=== PATIENT | female | born 1965 | race Caucasian/White ===

== ENCOUNTER → 2016-11-08 | Outpatient (CLI) | payer BC ==
[~2016-11-08] MED LIST: ADVAIR 250-501 EACH IH; CLINDAMYCIN HC300 MG PO; CYMBALTA60 MG PO; DIFLUCAN150 MG PO; MARTINIC1 EACH PO; NORCO 5/3251 TABLET PO; PREVACID30 MG PO; ULTRAM50 MG PO; VITAMIN B122500 MCG PO; VITAMIN D50000 UNI1 PO; XANAX0.5 MG PO
== END | disposition home or self-care (01) ==
LOC: CDC 15:39
DX: Z01.810 Encounter for preprocedural cardiovascular examination (principal); R06.02 Shortness of breath
CPT/HCPCS: 93000

== ENCOUNTER 2017-04-07 09:15 | Emergency (ER) | payer BC ==
[~2017-04-07] VITALS: Ht 162.6 cm; Wt 95.4 kg
[2017-04-07] MEDS ORDERED: POTASSIUM CHLOR8 ME2 PO (09:44)
[2017-04-07] MEDS ORDERED: MAGNESIUM100 MG PO (09:45)
[2017-04-07] MEDS ORDERED: LASIX40 MG PO (09:45)
[2017-04-07] MEDS ORDERED: FLEXERIL10 MG PO (11:46)
[2017-04-07] MEDS ORDERED: NORCO 5/3251 TABLET PO (11:46)
[2017-04-07 12:21] VITALS: BP 151/80
== END 2017-04-07 12:21 | disposition home or self-care (01) ==
LOC: EME 09:15
DX: S00.33XA Contusion of nose, initial encounter (principal); S60.212A Contusion of left wrist, initial encounter; S60.031A Contusion of right middle finger without damage to nail, initial encounter; S80.02XA Contusion of left knee, initial encounter; S80.01XA Contusion of right knee, initial encounter; W01.198A Fall on same level from slipping, tripping and stumbling with subsequent striking against other object, initial encounter; Y99.0 Civilian activity done for income or pay; J45.909 Unspecified asthma, uncomplicated; K21.9 Gastro-esophageal reflux disease without esophagitis; M79.7 Fibromyalgia; F32.9 Major depressive disorder, single episode, unspecified; F41.9 Anxiety disorder, unspecified; L40.50 Arthropathic psoriasis, unspecified; Z98.84 Bariatric surgery status; Z87.891 Personal history of nicotine dependence
CPT/HCPCS: 70150; 73110; 73130; 73564; 99281; 99284; J3010

== ENCOUNTER → 2017-09-02 | Outpatient (CLI) | payer BC ==
[~2017-09-02] MED LIST changes: +FLEXERIL10 MG PO; +LASIX40 MG PO; +MAGNESIUM100 MG PO; +POTASSIUM CHLOR8 ME2 PO; +REQUIP1 MG PO; +SYNTHROID50 MCG PO; +ZANAFLEX4 MG PO
== END | disposition home or self-care (01) ==
DX: M17.12 Unilateral primary osteoarthritis, left knee (principal); R26.2 Difficulty in walking, not elsewhere classified; M25.562 Pain in left knee; M25.662 Stiffness of left knee, not elsewhere classified; M62.81 Muscle weakness (generalized); Z74.1 Need for assistance with personal care
CPT/HCPCS: 97150 GO; 97161 GP; 97165 GO; 97530 GP

== ENCOUNTER 2017-09-07 21:07 | Inpatient (IN) | payer BC ==
[~2017-09-07] VITALS: Ht 162.6 cm; Wt 98.2 kg
[2017-09-08 09:12] VITALS: BP 163/70
[2017-09-08] MEDS ORDERED: XTAMPZA ER18 MG PO (09:21)
[2017-09-08] MEDS ORDERED: OXYCODONE HCL10 MG PO (09:22)
[2017-09-08 13:48] LABS: HEMATOCRIT 34.7 % (36.0-46.0); HEMOGLOBIN 10.7 G/DL (11.9-15.5); MCH 25.3 PG (29.0-34.0); MCHC 30.8 G/DL (30.0-36.0); PLATELET COUNT 242 K/uL (156-360); RBC DIS.WIDTH-CV 14.9 % (11.8-14.6); RBC DIS.WIDTH-SD 43.5 % (39-53); RED BLOOD COUNT 4.23 M/uL (3.80-5.20); WHITE BLOOD COUNT 6.3 K/uL (4.1-10.2)
[2017-09-08 18:12] VITALS: BP 154/76
[2017-09-08 19:51] VITALS: BP 148/70
[2017-09-09] VITALS (7 sets, daily range): BP systolic 132–157; BP diastolic 65–83
[2017-09-09 04:53] LABS: HEMATOCRIT 33.4 % (36.0-46.0); HEMOGLOBIN 10.4 G/DL (11.9-15.5); MCV 80.7 FL (83-99)
[2017-09-09 05:00] LABS: CHLORIDE 104 mEq/L (99-109); POTASSIUM 4.6 mEq/L (3.7-5.4); SODIUM 137 mEq/L (136-147)
[2017-09-09 05:02] LABS: GLUCOSE 127 mg/dL (70-99)
[2017-09-09 05:06] LABS: CREATININE 0.8 mg/dL (0.6-1.3); GFR ESTIMATE (CALCULATED) > 59 mL/min/; UREA NITROGEN (BUN) 10 mg/dL (9-23)
[2017-09-10 00:05] VITALS: BP 133/80
[2017-09-10 04:11] VITALS: BP 126/72
[2017-09-10 06:11] LABS: HEMATOCRIT 35.5 % (36.0-46.0); HEMOGLOBIN 10.8 G/DL (11.9-15.5); MCV 80.5 FL (83-99)
[2017-09-10 08:20] VITALS: BP 126/74
[2017-09-10] MEDS ORDERED: LOVENOX40 MG/0.4 SC (08:33)
[2017-09-10] MEDS ORDERED: OXYCONTIN20 MG PO (08:34)
[2017-09-10 12:12] VITALS: BP 98/64
== END 2017-09-10 15:10 | DRG 470 ==
LOC: ENRESERV 21:07 → 2SOUTH 09-08 08:42 → 3WEST 09-08 18:05
PROVIDERS: Orthopaedic Surgery
PROC: 0SRD0J9 Replacement of Left Knee Joint with Synthetic Substitute, Cemented, Open Approach (ICD-10-PCS; principal; 2017-09-08)
DX: M17.12 Unilateral primary osteoarthritis, left knee (principal); F41.0 Panic disorder [episodic paroxysmal anxiety]; G89.29 Other chronic pain; Z96.611 Presence of right artificial shoulder joint; Z98.84 Bariatric surgery status; Z90.710 Acquired absence of both cervix and uterus
CPT/HCPCS: 73560; 80048; 85014; 85018; 85027; C1713; J0330; J0360; J0690; J1100; J1170; J1650; J2250; J2405; J2710; J3010; J7030; J7050; Q0175

== ENCOUNTER 2017-09-27 19:42 | Emergency (ER) | payer BC ==
[~2017-09-27] VITALS: Ht 160 cm; Wt 99.0 kg
[~2017-09-27 19:42] MED LIST changes: +LOVENOX40 MG/0.4 SC; +OXYCODONE HCL10 MG PO; +OXYCONTIN20 MG PO; +XTAMPZA ER18 MG PO
[2017-09-27 20:32] LABS: HEMOGLOBIN 10.3 G/DL (11.9-15.5); MCH 25.8 PG (29.0-34.0); MCHC 31.2 G/DL (30.0-36.0); MCV 82.7 FL (83-99); RBC DIS.WIDTH-CV 14.7 % (11.8-14.6); RBC DIS.WIDTH-SD 44.7 % (39-53); RED BLOOD COUNT 3.99 M/uL (3.80-5.20)
[2017-09-27 20:36] LABS: PLATELET COUNT 331 K/uL (156-360)
[2017-09-27 20:48] LABS: CHLORIDE 100 mEq/L (99-109); POTASSIUM 4.3 mEq/L (3.7-5.4); SODIUM 141 mEq/L (136-147)
[2017-09-27 20:50] LABS: GLUCOSE 101 mg/dL (70-99)
[2017-09-27 20:54] LABS: GFR ESTIMATE (CALCULATED) > 59 mL/min/
[2017-09-27 20:55] LABS: UREA NITROGEN (BUN) 16 mg/dL (9-23)
[2017-09-27] MEDS ORDERED: DIFLUCAN150 MG PO (22:02)
[2017-09-27] MEDS ORDERED: KEFLEX500 MG PO (22:02)
[2017-09-27 22:21] VITALS: BP 108/78
== END 2017-09-27 22:48 | disposition home or self-care (01) ==
LOC: EME 19:42
PROVIDERS: Physician Assistant
DX: L03.116 Cellulitis of left lower limb (principal); Z96.652 Presence of left artificial knee joint; M79.7 Fibromyalgia; M19.90 Unspecified osteoarthritis, unspecified site; K21.9 Gastro-esophageal reflux disease without esophagitis; F32.9 Major depressive disorder, single episode, unspecified; J45.909 Unspecified asthma, uncomplicated; F41.9 Anxiety disorder, unspecified; Z87.891 Personal history of nicotine dependence; Z98.84 Bariatric surgery status; Z79.891 Long term (current) use of opiate analgesic
CPT/HCPCS: 80048; 85027; 93971; 99281; 99284

== ENCOUNTER 2017-10-21 12:46 | Day surgery (SDC) | payer BC ==
[~2017-10-21] VITALS: Ht 162.6 cm; Wt 95.4 kg
[~2017-10-21 12:46] MED LIST changes: +ERGOCALCIF50000 UNIT PO; +KEFLEX500 MG PO; +MICRO-K10 ME2 PO; -POTASSIUM CHLOR8 ME2 PO; +SYMBICORT60 INHALAT IH; -VITAMIN D50000 UNI1 PO; +XTAMPZA ER27 MG PO
[2017-10-21 13:25] VITALS: BP 197/88
[2017-10-21 19:05] VITALS: BP 150/81
[2017-10-21 20:05] VITALS: BP 141/85
== END 2017-10-21 20:10 | disposition home or self-care (01) ==
LOC: SDC 12:46
PROC: 0SWDXJZ Revision of Synthetic Substitute in Left Knee Joint, External Approach (ICD-10-PCS; principal; 2017-10-21)
DX: M24.662 Ankylosis, left knee (principal); Z96.652 Presence of left artificial knee joint; F41.8 Other specified anxiety disorders; Z87.891 Personal history of nicotine dependence; J45.909 Unspecified asthma, uncomplicated; E03.9 Hypothyroidism, unspecified; Z86.718 Personal history of other venous thrombosis and embolism; Z79.899 Other long term (current) drug therapy
CPT/HCPCS: 73560; 76000; J1100; J1170; J2250; J2405; J3010; J7030

== ENCOUNTER 2018-04-02 20:02 | Inpatient (IN) | payer BC ==
[~2018-04-02] VITALS: Ht 162.6 cm; Wt 104.4 kg
[2018-04-02 22:13] LABS: BASOPHIL (%) 0.2 % (0-1); EOSINOPHIL (%) 0.2 % (0-5); HEMATOCRIT 32.7 % (36.0-46.0); HEMOGLOBIN 9.9 G/DL (11.9-15.5); IMMATURE GRANULOCYTE (%) 0.5 % (0.0-0.7); LYMPHOCYTE (%) 22.2 % (15-42); LYMPHOCYTE COUNT 2.4 K/uL (1.0-2.8); MCH 23.9 PG (29.0-34.0); MCHC 30.3 G/DL (30.0-36.0); MCV 78.8 FL (83-99); MONOCYTE (%) 10.4 % (3-12); MONOCYTE COUNT 1.1 K/uL (0-0.8); NEUTROPHIL (%) 66.5 % (45-76); NEUTROPHIL COUNT 7.3 K/uL (1.8-6.4); PLATELET COUNT 253 K/uL (156-360); RBC DIS.WIDTH-CV 15.5 % (11.8-14.6); RBC DIS.WIDTH-SD 44.1 % (39-53); RED BLOOD COUNT 4.15 M/uL (3.80-5.20); WHITE BLOOD COUNT 10.9 K/uL (4.1-10.2)
[2018-04-02 22:20] LABS: CHLORIDE 103 mEq/L (99-109); POTASSIUM 3.8 mEq/L (3.7-5.4); SODIUM 137 mEq/L (136-147)
[2018-04-02 22:22] LABS: GLUCOSE 102 mg/dL (70-99)
[2018-04-02 22:26] LABS: CREATININE 1.1 mg/dL (0.6-1.3); GFR ESTIMATE (CALCULATED) 55 mL/min/
[2018-04-02 22:27] LABS: UREA NITROGEN (BUN) 12 mg/dL (9-23)
[2018-04-03 04:24] VITALS: BP 117/65
[2018-04-03 07:00] VITALS: BP 99/60
[2018-04-03] MEDS ORDERED: ALPRAZOLAM0.5 MG PO (11:36)
[2018-04-03] MEDS ORDERED: OXAPROZIN600 MG PO (11:37)
[2018-04-03] MEDS ORDERED: VITAMIN D-3 401 EACH PO (12:56)
[2018-04-03 16:51] VITALS: BP 100/54
[2018-04-03 22:46] VITALS: BP 135/64
[2018-04-04 07:42] VITALS: BP 107/57
[2018-04-04 15:05] VITALS: BP 107/61
[2018-04-04 23:10] VITALS: BP 93/61
[2018-04-05 07:20] VITALS: BP 106/59
[2018-04-05 16:00] VITALS: BP 100/56
[2018-04-05 22:28] VITALS: BP 120/70
[2018-04-06 06:34] LABS: BASOPHIL (%) 0.5 % (0-1); EOSINOPHIL (%) 2.5 % (0-5); EOSINOPHIL COUNT 0.1 K/uL (0-0.3); HEMATOCRIT 28.5 % (36.0-46.0); HEMOGLOBIN 8.3 G/DL (11.9-15.5); LYMPHOCYTE (%) 44.4 % (15-42); LYMPHOCYTE COUNT 1.8 K/uL (1.0-2.8); MCH 23.3 PG (29.0-34.0); MCHC 29.1 G/DL (30.0-36.0); MCV 80.1 FL (83-99); MONOCYTE (%) 9.1 % (3-12); MONOCYTE COUNT 0.4 K/uL (0-0.8); NEUTROPHIL (%) 42.5 % (45-76); NEUTROPHIL COUNT 1.7 K/uL (1.8-6.4); PLATELET COUNT 260 K/uL (156-360); RBC DIS.WIDTH-CV 15.2 % (11.8-14.6); RBC DIS.WIDTH-SD 44.2 % (39-53); RED BLOOD COUNT 3.56 M/uL (3.80-5.20)
[2018-04-06 06:43] LABS: CHLORIDE 108 MEQ/L (99-109); CREATININE 0.9 MG/DL (0.6-1.3); GFR ESTIMATE (CALCULATED) > 59 mL/min/; GLUCOSE 85 mg/dL (70-99); SODIUM 141 MEQ/L (136-147); UREA NITROGEN (BUN) 11 mg/dL (9-23)
[2018-04-06 06:45] LABS: POTASSIUM 4.8 MEQ/L (3.7-5.4)
[2018-04-06 07:29] VITALS: BP 124/68
[2018-04-06 16:22] VITALS: BP 122/78
[2018-04-06 23:59] VITALS: BP 118/58
[2018-04-07 08:00] VITALS: BP 146/67
[2018-04-07] MEDS ORDERED: BACTRIM,SEPT1 TABLET PO (09:12)
[2018-04-07 15:35] VITALS: BP 143/84
== END 2018-04-07 19:29 | disposition home or self-care (01) | DRG 264 ==
LOC: EME 20:02 → EDOF 04-03 02:20 → 5EAST 04-03 02:20 → ENRESERV 04-03 02:24 → 5EAST 04-03 03:00 → ENPENDDIS 04-07 → 5EAST 04-07 19:29
PROVIDERS: Emergency Medicine; Internal Medicine
PROC: 0JB80ZZ Excision of Abdomen Subcutaneous Tissue and Fascia, Open Approach (ICD-10-PCS; principal; 2018-04-04)
DX: I96 Gangrene, not elsewhere classified (principal); L02.211 Cutaneous abscess of abdominal wall; L03.311 Cellulitis of abdominal wall; L03.317 Cellulitis of buttock; B95.62 Methicillin resistant Staphylococcus aureus infection as the cause of diseases classified elsewhere; E66.01 Morbid (severe) obesity due to excess calories; Z68.41 Body mass index [BMI] 40.0-44.9, adult; G89.29 Other chronic pain; M79.7 Fibromyalgia; G43.909 Migraine, unspecified, not intractable, without status migrainosus; M19.90 Unspecified osteoarthritis, unspecified site; R53.83 Other fatigue; E03.9 Hypothyroidism, unspecified; J45.909 Unspecified asthma, uncomplicated; K21.9 Gastro-esophageal reflux disease without esophagitis; D64.9 Anemia, unspecified; F32.9 Major depressive disorder, single episode, unspecified; F41.0 Panic disorder [episodic paroxysmal anxiety]; Z98.84 Bariatric surgery status; Z96.611 Presence of right artificial shoulder joint; Z96.652 Presence of left artificial knee joint; Z87.891 Personal history of nicotine dependence
CPT/HCPCS: 74177; 80048; 80202; 83605; 85025; 87040; 87070; 87075; 87077; 87147; 87186; 87205; 88304; 99281; 99285; J0692; J1170; J1885; J2250; J2270; J2405; J3010; J3370; J7030; J7120